=== PATIENT | male | born 1960 | race American Indian/Alaskan Native ===

== ENCOUNTER 2017-06-21 15:16 | Emergency (ER) | payer MEDICAID, OTHER ==
[2017-06-21 15:22] VITALS: BP 135/88; PULSE 66; RESP 16; TEMP 98.1; O2SAT 98
[2017-06-21] MEDS ORDERED: Naproxen 550 mg Tab PO STA (16:05)
[2017-06-21] MEDS ORDERED: Naproxen 550 mg Tab PO ONE (16:12)
--- NOTE | 2017-06-21 16:25 | RAD ---
HISTORY: COMPARISON: 02/08/2015. TECHNIQUE: Chest PA and lateral FINDINGS: LINES AND TUBES: None. LUNG AND PLEURA: The lungs are well inflated and clear. HEART AND MEDIASTINUM: The heart is not enlarged. The hilar and mediastinal contours are within normal limits. SKELETAL STRUCTURES: The bony structures are within normal limits for the patient's age. VISUALIZED UPPER ABDOMEN: Normal. OTHER FINDINGS: None. IMPRESSION: No active pulmonary disease.
--- NOTE | 2017-06-21 17:28 | C.PDOC ---
History Of Present Illness 56 year old male presents to the ER with a complaint of left thoracic back pain that began this morning. Patient states the pain worsens with deep breathing and coughing. Patient reports he has had a nonproductive cough for the past several days. Denies chest pain, SOB, fever, or abdominal pain. Time Seen by Provider: 06/21/17 15:45 Chief Complaint (Nursing): Back Pain History Per: Patient History/Exam Limitations: no limitations Onset/Duration Of Symptoms: Days Current Symptoms Are (Timing): Still Present Quality Of Discomfort: Unable To Describe Previous Symptoms: None Associated Symptoms: None Exacerbating Factor(s): Other (Deep breathing) Recent travel outside of the [place]: No Past Medical History Reviewed: Historical Data, Nursing Documentation, Vital Signs Vital Signs: Last Vital Signs Temp 98.1 F 06/21/17 15:20 Pulse 66 06/21/17 15:20 Resp 16 06/21/17 15:20 BP 135/88 06/21/17 15:20 Pulse Ox 98 06/21/17 17:28 - Medical History PMH: Back Problems, HTN, Hyperlipidemia Family History: States: Unknown Family Hx - Social History Hx Tobacco Use: No Hx Alcohol Use: No Hx Substance Use: No - Immunization History Hx Tetanus Toxoid Vaccination: Yes Hx Influenza Vaccination: Yes (12/2014) Hx Pneumococcal Vaccination: Yes Review Of Systems Constitutional: Negative for: Fever Cardiovascular: Negative for: Chest Pain Respiratory: Negative for: Shortness of Breath Gastrointestinal: Negative for: Abdominal Pain Musculoskeletal: Positive for: Back Pain Neurological: Negative for: Weakness, Numbness Physical Exam - Physical Exam Appears: Non-toxic, No Acute Distress, Other (Comfortable) Skin: Normal Color, Warm, Dry, No Rash Head: Atraumatic, Normacephalic Eye(s): bilateral: Normal Inspection Oral Mucosa: Moist Chest: Symmetrical, No Tenderness Cardiovascular: Rhythm Regular Respiratory: Normal Breath Sounds, No Rales, No Rhonchi, No Wheezing Back: Paraspinal Tenderness (Left thoracic at T7) Extremity: Normal ROM (x4) Neurological/Psych: Oriented x3, Normal Speech, Normal Motor, Normal Sensation Gait: Steady ED Course And Treatment O2 Sat by Pulse Oximetry: 98 (Room air) Pulse Ox Interpretation: Normal - Radiology CXR: Interpreted by Me, Viewed By Me CXR Interpretation: Yes: No Acute Disease. No: Infiltrates, Fracture Progress Note: CXR ordered, results were negative. Naproxen and flexeril administered with relief, patient discharged and instructed to follow up with PMD. Disposition Counseled Patient/Family Regarding: Studies Performed, Diagnosis, Need For Followup, Rx Given - Disposition Referrals: Saul Llamas MD [Medical Doctor] - Disposition: HOME/ ROUTINE Disposition Time: 17:20 Condition: STABLE Additional Instructions: FOLLOW UP WITH YOUR DOCTOR IN 1-2 DAYS USE MEDICATIONS NEEDED RETURN TO ER IF SYMPTOMS WORSEN IF COUGH PERSISTS, TALK TO YOUR DOCTOR ABOUT STOPPING/CHANGING LISINOPRIL Prescriptions: Benzonatate [Tessalon Perles] 100 mg PO BID PRN #15 sgl PRN Reason: Cough Cyclobenzaprine [Flexeril] 10 mg PO BID PRN #15 tab PRN Reason: Muscle Spasm Naproxen 375 mg PO BID PRN #20 tablet PRN Reason: pain Instructions: Upper Back Pain (DC), Cough, Adult (DC) Forms: el? (Bulgarian) Print Language: AZERI - POA Present On Arrival: None - Clinical Impression Clinical Impression: Thoracic back pain, Cough - Scribe Statement The provider has reviewed the documentation as recorded by the Scribe Silvino Schulte All medical record entries made by the Selmaibvilma were at my direction and personally dictated by me. I have reviewed the chart and agree that the record accurately reflects my personal performance of the history, physical exam, medical decision making, and the department course for this patient. I have also personally directed, reviewed, and agree with the discharge instructions and disposition.
== END 2017-06-21 17:39 | disposition home or self-care (01) ==
LOC: C.ER 15:16
DX: R05 Cough (principal); M54.6 Pain in thoracic spine; I10 Essential (primary) hypertension; E78.5 Hyperlipidemia, unspecified